=== PATIENT | female | born 1960 | race Caucasian/White ===

== ENCOUNTER 2018-04-16 15:17 | Emergency (ER) | END 2018-04-16 17:14 | disposition home or self-care (01) ==

== ENCOUNTER 2019-01-01 10:52 | Emergency (ER) | payer OTHER ==
[~2019-01-01] VITALS: Ht 167.6 cm; Wt 66.8 kg
[~2019-01-01 10:52] MED LIST: AMOX500C2 PO; AZIT250T PO; BENZ-6 PO; DENIES; IBUP-1542 PO; NAPR-688 PO
[2019-01-01 10:58] VITALS: BP 146/90; PULSE 98; RESP 18; Ht 167.6 cm; Wt 66.8 kg
[2019-01-01] MEDS ORDERED: AMOX250C PO (12:40)
--- NOTE | 2019-01-01 12:42 | ERD ---
ER Documentation Chief Complaint Chief Complaint cough and throat pain x 4 days HPI 58-year-old female states that for the last 4 days she has had a cough nonproductive of purulent sputum associated with a sore throat and upper respiratory congestion. She reports low-grade fever. She reports no difficulty breathing. She reports no difficulty swallowing. ROS All systems reviewed and are negative except as per history of present illness. Medications Home Meds Active Scripts Amoxicillin* (Amoxicillin*) 250 Mg Cap, 250 MG PO TID for 7 Days, CAP Prov:GIUSEPPE LOBO 01/01/19 Benzonatate* (Tessalon Perle*) 100 Mg Capsule, 100 MG PO Q8H PRN for COUGH, #14 CAP Prov:MIRIAMCHARISSA 04/16/18 Naproxen* (Naproxen*) 500 Mg Tablet, 500 MG PO BID PRN for PAIN, #20 TAB Prov:CHARISSA PINEDA DO 04/16/18 Azithromycin* (Zithromax*) 250 Mg Tablet, 250 MG PO .ZPACK DIRECTED, #6 TAB TAKE 500 MG (2 TABS) THE FIRST DAY THEN 250 MG (1 TAB) DAYS 2-5 Prov:MIRIAMCHARISSA 04/16/18 Amoxicillin* (Amoxicillin*) 500 Mg Cap, 500 MG PO TID for 10 Days, CAP Prov:SHANNAN ZHANG MD 09/30/15 Ibuprofen* (Ibuprofen*) 600 Mg Tablet, 600 MG PO Q6, #14 TAB Prov:SHANNAN ZHANG MD 09/30/15 Reported Medications [Denies] No Conflict Check 01/11/11 Allergies Allergies: Coded Allergies: No Known Allergies (Verified Allergy, Mild, 01/11/11) PMhx/Soc History of Surgery: Yes (GALLBLADDER) Anesthesia Reaction: No Hx Neurological Disorder: No Hx Respiratory Disorders: No Hx Cardiac Disorders: No Hx Psychiatric Problems: No Hx Miscellaneous Medical Probl: No Hx Alcohol Use: No Hx Substance Use: No Hx Tobacco Use: No Physical Exam Vitals Vital Signs Date Temp Pulse Resp B/P (MAP) Pulse Ox O2 O2 Flow FiO2 Time Delivery Rate 01/01/19 98.8 98 18 146/90 96 10:58 (108) Physical Exam GENERAL: The patient is well developed and appropriate for usual state of health in no apparent distress HEENT: Pupils equal, round, and reactive to light. EOMI. There is no scleral icterus. There is tonsillar hypertrophy without exudate or evidence of abscess NECK: C-spine is soft and supple, there is no meningismus. There is no cervical lymphadenopathy. LUNGS: Clear to auscultation bilaterally. There are no rales, wheezes or rhonchi. HEART: Regular rate and rhythm, no murmurs, clicks, rubs or gallops. Procedures/MDM Patient was taken to a room, seen and examined Medical decision makin-year-old female presents the emergency department with what appears to be a pharyngitis. Patient has no evidence of peritonsillar abscess or deep space tissue infection. Her cough is likely related to this upper respiratory infection and she has no evidence of pneumonia or hypoxemia after discussion with the patient this appears to be viral, patient is requesting an antibiotic despite being counseled against it. She is otherwise clinically nontoxic and seems appropriate for outpatient supportive care. Departure Diagnosis: Primary Impression: Pharyngitis Condition: Stable Patient Instructions: Pharyngitis, Strep (Presumed) Additional Instructions: Consulte a valente mdico para el seguimiento segn lo discutido. Lleve ainsley copia de los resultados de valente prueba, si corresponde, a esta visita de seguimiento. Consulte a valente mdico o regrese aqu si ashkan sntomas no mejoran rosanna se esperaba. En cualquier momento, regrese al departamento de emergencias por cualquier cambio o empeoramiento en ashkan sntomas. GIUSEPPE LOBO Jan 01, 2019 12:42
== END 2019-01-01 16:37 | disposition home or self-care (01) ==
LOC: FTE 10:52
DX: J02.9 Acute pharyngitis, unspecified (principal)
CPT/HCPCS: 99283